=== PATIENT | female | born 1980 | race African-American/Black ===

== ENCOUNTER 2024-11-13 06:41 | Emergency (ER) | payer OTHER ==
[~2024-11-13] VITALS: Ht 165.1 cm; Wt 54.4 kg
[2024-11-13] MEDS: LIDOCAINE 5% (PATCH) 1 EA PATCH TP SCH (08:00)
[2024-11-13 08:18] LABS: PREGNANCY TEST URINE QUAL NEGATIVE (NEGATIVE)
[2024-11-13] MEDS ORDERED: LIDOCAINE 5% (PATCH) 1 EA PATCH TP ONE (08:20)
[2024-11-13] MEDS ORDERED: ACETAMINOPHEN ES 500 MG TABLET ONE (08:20)
[2024-11-13] MEDS ORDERED: IBUPROFEN 400 MG TABLET ONE (08:21)
[2024-11-13] MEDS ORDERED: CYCLOBENZAPRINE 10 MG TABLET ONE (08:21)
[2024-11-13] MEDS: CYCLOBENZAPRINE 10 MG TABLET PO ONE (08:27)
[2024-11-13] MEDS: ACETAMINOPHEN ES 500 MG TABLET PO ONE (08:28)
[2024-11-13] MEDS: IBUPROFEN 400 MG TABLET PO ONE (08:28)
[2024-11-13] MEDS ORDERED: CYCL10TA9 PO (09:13)
[2024-11-13] MEDS ORDERED: KETO10TA2 PO (09:13)
[2024-11-13] MEDS ORDERED: LIDO30AD10 TP (09:13)
[2024-11-13 10:48] VITALS: BP 125/78; TEMP 98.7; O2SAT 99
== END 2024-11-13 10:49 | disposition home or self-care (01) ==
LOC: ER 06:45
DX: S16.1XXA Strain of muscle, fascia and tendon at neck level, initial encounter (principal); S39.012A Strain of muscle, fascia and tendon of lower back, initial encounter; M25.572 Pain in left ankle and joints of left foot; Z60.2 Problems related to living alone; V43.52XA Car driver injured in collision with other type car in traffic accident, initial encounter; Y93.89 Activity, other specified; Y92.488 Other paved roadways as the place of occurrence of the external cause; Y99.8 Other external cause status
CPT/HCPCS: 72125-TC; 73610-TC; 84703-TC